=== PATIENT | female | born 1990 | race American Indian/Alaskan Native ===

== ENCOUNTER 2019-03-14 20:30 | Inpatient (IN) | payer OTHER ==
[2019-03-14] MEDS ORDERED: XYLOCAINE 2% INFILTRATI ONE (23:29)
[2019-03-14] MEDS ORDERED: D50W (25GM) Syringe IV PRN (23:29)
[2019-03-14] MEDS ORDERED: MINERAL OIL PO PRN (23:29)
[2019-03-14] MEDS ORDERED: BRETHINE IVP PRN (23:29)
[2019-03-14] MEDS ORDERED: BRETHINE SUB-Q PRN (23:29)
[2019-03-14] MEDS ORDERED: CERVIDIL VG ONE (23:29)
--- NOTE | 2019-03-14 23:37 | Ultrasound Report ---
PROCEDURE: Limited obstetrical ultrasound. TECHNIQUE: Real-time limited sonographic examination was performed for evaluation of each fetus with image documentation (1 or more fetuses). HISTORY: Term , evaluate positioning. COMPARISONS: None. FINDINGS: There is a single viable fetus in cephalic presentation. Cardiac activity is documented at 150 bpm. IMPRESSION: Viable fetus in cephalic presentation. This document is electronically signed by Lincoln Mercado MD., Mar 14 2019 11:34:58 PM ET
[2019-03-14] MEDS ORDERED: PITOCin/NS 20 UNIT/1000ML DRIP 20 UNITS/1,000 ML BAG IV SCH (23:45)
[2019-03-14] MEDS ORDERED: LACTATED RINGERS 1,000 ML ONE (23:49)
[2019-03-14] MEDS: LACTATED RINGERS 1,000 ML IV SCH (23:58)
[2019-03-15] MEDS: HumuLIN R SUB-Q SCH ×2 (00:45→06:28)
[2019-03-15 00:47] LABS: Hematocrit 34.4 % (30.3-42.9); Hemoglobin 11.9 gm/dl (10.1-14.3); Mean Corpuscular HGB Conc 35 % (30-34); Mean Corpuscular Volume 80 fl (79-97); Platelet Count 140 K/mm3 (140-440); Red Cell Distribution Width 13.2 % (13.2-15.2)
[2019-03-15] MEDS ORDERED: PITOCin/NS 30 UNIT/500ML 30 UNITS/500 ML BAG IV SCH ×2 (03:00→09:00)
--- NOTE | 2019-03-15 03:17 | History and Physical Report ---
History of Present Illness Date of examination: 03/15/19 Date of admission: 03/14/19 20:30 Chief complaint: IUP@39 wga, presents for IOL d/t IUGR and GDM on Metformin per [facility] recommendations History of present illness: EDC Confirmation: 03/17/2019 Gestational Age: 12 weeks Past History : 3 Term Births: 1 Premature Births: 0 Living Children: 1 Para: 1 Mult. Births: 0 Prev : 0 Aborta: 1 Elect. Ab: 0 Spont. Ab: 1 Ectopics: 0 # 1 Delivery date: 12/25/2011 Weeks Gestation: 38 Delivery type: Hours of labor: 24 Delivery location: [place] [facility] Sex: Male weight: 5-? Name: Mino # 2 Delivery date: 01/2017 Weeks Gestation: 8 Delivery type: SAB Comments: No D&C Past Medical History: Negative Past Medical History Past Surgical History: Negative Past Surgical History Family History Summary: Other family member - Has No Family History of Ovarvian Cancer - Entered On: 09/02/2018 Other family member - Has No Family History of Colon Cancer - Entered On: 09/02/2018 Other family member - Has No Family History of Breast Cancer - Entered On: 09/02/2018 Other family member - Has Family History of Hypertension - Entered On: 09/02/2018 Social History: Marital Status: Children: 1 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 of genital herpes: no Genetic History Congenital Heart Defect: Mom: yes Dad: no Comments: son at 6monthd surgery "hole in heart" Juan Disease: Mom: no Dad: no Thalassemia Mom: no Dad: no Neural Tube Defect Mom: no Dad: no Down's Syndrome Mom: no Dad: no Jaron-Sachs Mom: no Dad: no Sickle Cell Disease/Trait Mom: no Dad: no Hemophilia Mom: no Dad: no Muscular Dystrophy Mom: no Dad: no Cystic Fibrosis Mom: no Dad: no Pilo Chorea Mom: no Dad: no Mental Retardation Mom: no Dad: no Fragile X Mom: no Dad: no Other Genetic/Chromosomal Disorder Mom: no Dad: no Child w/other defect Mom: no Dad: no Enviromental Exposures Xray Exposure: no Medication, drug, or alcohol use since LMP: no Chemical/Other Exposure: no Exposure to Cat Liter: no Hx of Parvovirus (Fifth Disease): no Active Medications (reviewed today): VITAMIN PLUS LOW IRON 27-1 MG ORAL TABLET ( VIT-FE FUMARATE-FA) 1 po q day as directed Current Allergies (reviewed today): No known allergies Past History - Obstetrical History Expected Date of Delivery: 03/17/19 Actual Gestation: 39 Week(s) 5 Day(s) : 3 Medications and Allergies Allergies Allergy/AdvReac Type Severity Reaction Status Date / Time No Known Allergies Allergy Verified 03/14/19 23:50 Home Medications Medication Instructions Recorded Confirmed Last Taken Type Pnv 29-1 Tablet 1 tab PO DAILY 03/14/19 03/14/19 Unknown History metFORMIN [Glucophage] 500 mg PO QDAY 03/15/19 03/15/19 03/14/19 18:30 History Active Meds: Active Medications Dextrose (D50w (25gm) Syringe) 50 ml IV PRN PRN PRN Reason: Hypoglycemia Ephedrine Sulfate (Ephedrine Sulfate) 10 mg IV Q2M PRN PRN Reason: Hypotension Oxytocin/Sodium Chloride (Pitocin/Ns 20 Unit/1000ml Drip) 20 units in 1,000 mls @ 125 mls/hr IV DIRECT DOMINGA Lactated Ringer's (Lactated Ringers) 1,000 mls @ 125 mls/hr IV DIRECT DOMINGA Last Admin: 03/14/19 23:58 Dose: 125 mls/hr Documented by: Ampicillin Sodium (Ampicillin/Ns 1 Gm/50 Ml) 1 gm in 50 mls @ 100 mls/hr IV Q4HR DOMINGA; Protocol Ampicillin Sodium (Polycillin/Ns 2 Gm/100 Ml) 2 gm in 100 mls @ 100 mls/hr IV ONCE ONE; Protocol Stop: 03/15/19 13:59 Oxytocin/Sodium Chloride (Pitocin/Ns 30 Unit/500ml) 30 units in 500 mls @ 1 mls/hr IV TITR DOMINGA; Protocol Last Admin: 03/15/19 03:06 Dose: 1 milliunits/min, 1 mls/hr Documented by: Insulin Human Regular (Humulin R) 0 units SUB-Q Q6HR DOMINGA; Protocol Last Admin: 03/15/19 00:45 Dose: Not Given Documented by: Mineral Oil (Mineral Oil) 30 ml PO QHS PRN PRN Reason: Constipation Terbutaline Sulfate (Brethine) 0.25 mg SUB-Q ONCE PRN PRN Reason: Hyperstimulation/Hypertonicity Terbutaline Sulfate (Brethine) 0.25 mg IVP ONCE PRN PRN Reason: Hyperstimulation/Hypertonicity Review of Systems All systems: negative - Vital Signs Vital signs: Vital Signs Pulse BP 96 H 123/81 03/14/19 21:26 03/14/19 21:26 Temp Pulse Resp BP Pulse Ox 98.4 F 75 16 114/64 03/14/19 23:55 03/15/19 03:07 03/14/19 21:43 03/15/19 03:07 - Physical Exam Cardiovascular: Regular rate Lungs: Positive: Normal air movement - Obstetrical FHR: category 1 Cervical Dilatation: 1 Cervical Effacement Percentage: 50 station: -3 per RN@2150 Results Result Diagrams: 03/14/19 22:34 Abnormal lab results 03/14/19 03/14/19 Range/Units 21:54 22:34 MCHC 35 H (30-34) % POC Glucose 117 H (70-105) All other labs normal. Assessment and Plan - Patient Problems (1) 39 weeks gestation of Current Visit: Yes Status: Acute Plan to address problem: Strip reviewed, suspicious decelerations noted initially, however now cat 1, but d/t previous strip and GDM with IUGR will start low dose pitocin for IOL for now. Plan of care discussed with patient, questions encouraged and answered, she voiced understanding and agrees with plan of care (2) Gestational diabetes mellitus (GDM) controlled on oral hypoglycemic drug Current Visit: Yes Status: Acute Qualifiers: Trimester: third trimester Qualified Code(s): O24.415 - Gestational diabetes mellitus in , controlled by oral hypoglycemic drugs Plan to address problem: SSI for now (3) IUGR (intrauterine growth restriction) Current Visit: Yes Status: Acute Plan to address problem: EFW 5lb 6oz on 02/23/2019, 6%tile.
[2019-03-15] MEDS ORDERED: AMPICILLIN/NS 2 GM/100 ML 2 GM/100 ML BAG IV ONE ×3 (07:51→13:00)
--- NOTE | 2019-03-15 07:57 | Progress Note ---
Assessment and Plan Patient resting on side, denies needs for pain intervention at this time. SVE now 70/0. discussed IOL and AROM - pt desires AROM at this time. Clear fluid noted. Will continue increasing pitocin per protocol. Amp started for + GBS. Pt does not plan on epidural at this time; pain management options reviewed and pt aware all options are available to her as she sees fit. Anticipate . FHT currently CAT 1. - Patient Problems (1) 39 weeks gestation of Current Visit: Yes Status: Acute (2) Gestational diabetes mellitus (GDM) controlled on oral hypoglycemic drug Current Visit: Yes Status: Acute Qualifiers: Trimester: third trimester Qualified Code(s): O24.415 - Gestational diabetes mellitus in , controlled by oral hypoglycemic drugs (3) IUGR (intrauterine growth restriction) Current Visit: Yes Status: Acute (4) GBS (group B Streptococcus carrier), +RV culture, currently Current Visit: Yes Status: Acute Subjective - Subjective Date of service: 03/15/19 Principal diagnosis: IOL for IUGR and GDM Patient reports: movement normal, contractions Objective - Vital Signs Vital Signs: Vital Signs - 12hr 03/14/19 03/14/19 03/14/19 21:26 21:43 22:02 Temperature 98.6 F Pulse Rate 96 H 96 H Respiratory 16 Rate Blood Pressure 123/81 Blood Pressure 123/81 [Left] O2 Sat by Pulse Oximetry 03/14/19 03/14/19 03/15/19 23:55 23:56 03:07 Temperature 98.4 F Pulse Rate 87 75 Respiratory Rate Blood Pressure 104/60 114/64 Blood Pressure [Left] O2 Sat by Pulse Oximetry 03/15/19 03/15/19 03/15/19 03:11 03:16 03:21 Temperature Pulse Rate 79 75 75 Respiratory Rate Blood Pressure Blood Pressure [Left] O2 Sat by Pulse 100 100 100 Oximetry 03/15/19 03/15/19 03/15/19 03:26 03:31 03:36 Temperature Pulse Rate 75 79 74 Respiratory Rate Blood Pressure Blood Pressure [Left] O2 Sat by Pulse 100 100 100 Oximetry 03/15/19 03/15/19 03/15/19 03:41 03:46 03:51 Temperature Pulse Rate 69 71 70 Respiratory Rate Blood Pressure Blood Pressure [Left] O2 Sat by Pulse 100 100 100 Oximetry 03/15/19 03/15/19 03/15/19 03:56 04:01 04:06 Temperature Pulse Rate 71 75 74 Respiratory Rate Blood Pressure Blood Pressure [Left] O2 Sat by Pulse 100 100 100 Oximetry 03/15/19 03/15/19 03/15/19 04:11 04:16 04:21 Temperature Pulse Rate 78 72 73 Respiratory Rate Blood Pressure Blood Pressure [Left] O2 Sat by Pulse 100 100 100 Oximetry 03/15/19 03/15/19 03/15/19 04:26 04:31 04:36 Temperature Pulse Rate 71 79 74 Respiratory Rate Blood Pressure Blood Pressure [Left] O2 Sat by Pulse 100 100 100 Oximetry 03/15/19 03/15/19 03/15/19 04:41 04:46 04:51 Temperature Pulse Rate 76 72 70 Respiratory Rate Blood Pressure Blood Pressure [Left] O2 Sat by Pulse 100 100 100 Oximetry 03/15/19 03/15/19 03/15/19 04:56 05:01 05:06 Temperature Pulse Rate 72 80 82 Respiratory Rate Blood Pressure Blood Pressure [Left] O2 Sat by Pulse 100 100 100 Oximetry 03/15/19 03/15/19 03/15/19 05:11 05:16 05:21 Temperature Pulse Rate 71 70 74 Respiratory Rate Blood Pressure Blood Pressure [Left] O2 Sat by Pulse 100 100 100 Oximetry 03/15/19 03/15/19 03/15/19 05:26 05:31 05:36 Temperature Pulse Rate 70 74 73 Respiratory Rate Blood Pressure Blood Pressure [Left] O2 Sat by Pulse 100 100 100 Oximetry 03/15/19 03/15/19 03/15/19 05:41 05:46 05:51 Temperature Pulse Rate 74 73 70 Respiratory Rate Blood Pressure Blood Pressure [Left] O2 Sat by Pulse 100 100 100 Oximetry 03/15/19 03/15/19 03/15/19 05:56 06:01 06:06 Temperature Pulse Rate 69 77 73 Respiratory Rate Blood Pressure Blood Pressure [Left] O2 Sat by Pulse 100 100 100 Oximetry 03/15/19 03/15/19 03/15/19 06:11 06:23 06:24 Temperature Pulse Rate 72 67 73 Respiratory Rate Blood Pressure 106/65 Blood Pressure [Left] O2 Sat by Pulse 100 97 Oximetry 03/15/19 03/15/19 03/15/19 06:25 06:28 06:33 Temperature 98.8 F Pulse Rate 70 72 Respiratory Rate Blood Pressure Blood Pressure [Left] O2 Sat by Pulse 96 97 Oximetry 03/15/19 03/15/19 03/15/19 06:38 06:43 06:48 Temperature Pulse Rate 67 65 71 Respiratory Rate Blood Pressure Blood Pressure [Left] O2 Sat by Pulse 97 98 97 Oximetry 03/15/19 03/15/19 03/15/19 06:53 06:58 07:00 Temperature 98.2 F Pulse Rate 70 61 Respiratory Rate Blood Pressure Blood Pressure [Left] O2 Sat by Pulse 98 99 Oximetry 03/15/19 03/15/19 03/15/19 07:03 07:06 07:08 Temperature Pulse Rate 65 62 63 Respiratory Rate Blood Pressure 107/65 Blood Pressure [Left] O2 Sat by Pulse 99 99 Oximetry 03/15/19 03/15/19 03/15/19 07:13 07:18 07:23 Temperature Pulse Rate 61 67 66 Respiratory Rate Blood Pressure Blood Pressure [Left] O2 Sat by Pulse 98 98 98 Oximetry 03/15/19 03/15/19 03/15/19 07:28 07:33 07:38 Temperature Pulse Rate 74 65 68 Respiratory Rate Blood Pressure Blood Pressure [Left] O2 Sat by Pulse 99 98 98 Oximetry 03/15/19 03/15/19 07:43 07:48 Temperature Pulse Rate 69 71 Respiratory Rate Blood Pressure Blood Pressure [Left] O2 Sat by Pulse 99 99 Oximetry - Exam Breasts: normal Cardiovascular: Regular rate Lungs: Clear to auscultation, Normal air movement Abdomen: Present: normal appearance, soft Vulva: both: normal Uterus: Present: normal FHR: auscultation normal, category 1 Uterine Contraction Monitor Mode: External Cervical Dilatation: 3 Cervical Effacement Percentage: 70 station: 0 Uterine Contraction Frequency (min): 2-4 Uterine Contraction Duration: 60 Uterine Contraction Pattern: Regular Uterine Tone Measurement Phase: Contraction Uterine Contraction Intensity: Moderate Extremities: normal Deep Tendon Reflex Grade: Normal +2 - Labs Labs: Abnormal Labs 03/14/19 03/14/19 21:54 22:34 MCHC 35 H POC Glucose 117 H Laboratory Results - last 24 hr 03/14/19 03/14/19 03/14/19 21:54 22:34 22:34 WBC 5.7 RBC 4.30 Hgb 11.9 Hct 34.4 MCV 80 MCH 28 MCHC 35 H RDW 13.2 Plt Count 140 POC Glucose 117 H Hemoglobin A1c 5.2 Blood Type Antibody Screen 03/14/19 03/15/19 03/15/19 22:34 00:26 06:19 WBC RBC Hgb Hct MCV MCH MCHC RDW Plt Count POC Glucose 73 83 Hemoglobin A1c Blood Type O POSITIVE Antibody Screen Negative
[2019-03-15] MEDS: LACTATED RINGERS 1,000 ML IV SCH ×2 (09:03→15:12)
[2019-03-15] MEDS ORDERED: ZOFRAN IV PRN (10:30)
[2019-03-15] MEDS ORDERED: AMPICILLIN/NS 1 GM/50 ML 1 GM/50 ML BAG IV SCH ×2 (12:00→17:00)
--- NOTE | 2019-03-15 13:02 | Progress Note ---
Assessment and Plan Patient doing well, tolerating ctx well. SVE with some change - tight band noted in cervix. IUPC placed without difficulty. FHT with early decels. anticipate . - Patient Problems (1) 39 weeks gestation of Current Visit: Yes Status: Acute (2) Gestational diabetes mellitus (GDM) controlled on oral hypoglycemic drug Current Visit: Yes Status: Acute Qualifiers: Trimester: third trimester Qualified Code(s): O24.415 - Gestational diabetes mellitus in , controlled by oral hypoglycemic drugs (3) IUGR (intrauterine growth restriction) Current Visit: Yes Status: Acute (4) GBS (group B Streptococcus carrier), +RV culture, currently Current Visit: Yes Status: Acute Plan to address problem: continue ampicillin q4h until delivery Subjective - Subjective Date of service: 03/15/19 Principal diagnosis: IOL for IUGR and GDM Patient reports: movement normal, contractions Objective - Vital Signs Vital Signs: Vital Signs - 12hr 03/15/19 03/15/19 03/15/19 03:07 03:11 03:16 Temperature Pulse Rate 75 79 75 Blood Pressure 114/64 O2 Sat by Pulse 100 100 Oximetry 03/15/19 03/15/19 03/15/19 03:21 03:26 03:31 Temperature Pulse Rate 75 75 79 Blood Pressure O2 Sat by Pulse 100 100 100 Oximetry 03/15/19 03/15/19 03/15/19 03:36 03:41 03:46 Temperature Pulse Rate 74 69 71 Blood Pressure O2 Sat by Pulse 100 100 100 Oximetry 03/15/19 03/15/19 03/15/19 03:51 03:56 04:01 Temperature Pulse Rate 70 71 75 Blood Pressure O2 Sat by Pulse 100 100 100 Oximetry 03/15/19 03/15/19 03/15/19 04:06 04:11 04:16 Temperature Pulse Rate 74 78 72 Blood Pressure O2 Sat by Pulse 100 100 100 Oximetry 03/15/19 03/15/19 03/15/19 04:21 04:26 04:31 Temperature Pulse Rate 73 71 79 Blood Pressure O2 Sat by Pulse 100 100 100 Oximetry 03/15/19 03/15/19 03/15/19 04:36 04:41 04:46 Temperature Pulse Rate 74 76 72 Blood Pressure O2 Sat by Pulse 100 100 100 Oximetry 03/15/19 03/15/19 03/15/19 04:51 04:56 05:01 Temperature Pulse Rate 70 72 80 Blood Pressure O2 Sat by Pulse 100 100 100 Oximetry 03/15/19 03/15/19 03/15/19 05:06 05:11 05:16 Temperature Pulse Rate 82 71 70 Blood Pressure O2 Sat by Pulse 100 100 100 Oximetry 03/15/19 03/15/19 03/15/19 05:21 05:26 05:31 Temperature Pulse Rate 74 70 74 Blood Pressure O2 Sat by Pulse 100 100 100 Oximetry 03/15/19 03/15/19 03/15/19 05:36 05:41 05:46 Temperature Pulse Rate 73 74 73 Blood Pressure O2 Sat by Pulse 100 100 100 Oximetry 03/15/19 03/15/19 03/15/19 05:51 05:56 06:01 Temperature Pulse Rate 70 69 77 Blood Pressure O2 Sat by Pulse 100 100 100 Oximetry 03/15/19 03/15/19 03/15/19 06:06 06:11 06:23 Temperature Pulse Rate 73 72 67 Blood Pressure O2 Sat by Pulse 100 100 97 Oximetry 03/15/19 03/15/19 03/15/19 06:24 06:25 06:28 Temperature 98.8 F Pulse Rate 73 70 Blood Pressure 106/65 O2 Sat by Pulse 96 Oximetry 03/15/19 03/15/19 03/15/19 06:33 06:38 06:43 Temperature Pulse Rate 72 67 65 Blood Pressure O2 Sat by Pulse 97 97 98 Oximetry 03/15/19 03/15/19 03/15/19 06:48 06:53 06:58 Temperature Pulse Rate 71 70 61 Blood Pressure O2 Sat by Pulse 97 98 99 Oximetry 03/15/19 03/15/19 03/15/19 07:00 07:03 07:06 Temperature 98.2 F Pulse Rate 65 62 Blood Pressure 107/65 O2 Sat by Pulse 99 Oximetry 03/15/19 03/15/19 03/15/19 07:08 07:13 07:18 Temperature Pulse Rate 63 61 67 Blood Pressure O2 Sat by Pulse 99 98 98 Oximetry 03/15/19 03/15/19 03/15/19 07:23 07:28 07:33 Temperature Pulse Rate 66 74 65 Blood Pressure O2 Sat by Pulse 98 99 98 Oximetry 03/15/19 03/15/19 03/15/19 07:38 07:43 07:48 Temperature Pulse Rate 68 69 71 Blood Pressure O2 Sat by Pulse 98 99 99 Oximetry 03/15/19 03/15/19 03/15/19 07:53 07:58 08:03 Temperature Pulse Rate 68 62 71 Blood Pressure O2 Sat by Pulse 99 99 99 Oximetry 03/15/19 03/15/19 03/15/19 08:06 08:08 08:13 Temperature Pulse Rate 65 68 63 Blood Pressure 109/71 O2 Sat by Pulse 99 99 Oximetry 03/15/19 03/15/19 03/15/19 08:18 08:23 08:28 Temperature Pulse Rate 63 64 66 Blood Pressure O2 Sat by Pulse 99 99 99 Oximetry 03/15/19 03/15/19 03/15/19 08:33 08:38 08:43 Temperature Pulse Rate 65 63 62 Blood Pressure O2 Sat by Pulse 98 98 98 Oximetry 03/15/19 03/15/19 03/15/19 08:48 08:53 08:58 Temperature Pulse Rate 71 68 65 Blood Pressure O2 Sat by Pulse 98 99 98 Oximetry 03/15/19 03/15/19 03/15/19 09:00 09:03 09:06 Temperature 98.8 F Pulse Rate 68 67 Blood Pressure 112/72 O2 Sat by Pulse 99 Oximetry 03/15/19 03/15/19 03/15/19 09:08 09:13 09:18 Temperature Pulse Rate 76 72 64 Blood Pressure O2 Sat by Pulse 97 98 99 Oximetry 03/15/19 03/15/19 03/15/19 09:23 09:28 09:33 Temperature Pulse Rate 65 66 71 Blood Pressure O2 Sat by Pulse 99 99 98 Oximetry 03/15/19 03/15/19 03/15/19 09:38 09:43 09:48 Temperature Pulse Rate 70 75 76 Blood Pressure O2 Sat by Pulse 98 98 99 Oximetry 03/15/19 03/15/19 03/15/19 09:53 09:58 10:03 Temperature Pulse Rate 68 106 H 80 Blood Pressure O2 Sat by Pulse 99 100 98 Oximetry 03/15/19 03/15/19 03/15/19 10:07 10:08 10:13 Temperature Pulse Rate 80 75 68 Blood Pressure 112/74 O2 Sat by Pulse 99 99 Oximetry 03/15/19 03/15/19 03/15/19 10:18 10:23 10:28 Temperature Pulse Rate 88 67 67 Blood Pressure O2 Sat by Pulse 99 99 98 Oximetry 03/15/19 03/15/19 03/15/19 10:33 10:38 10:43 Temperature Pulse Rate 67 72 81 Blood Pressure O2 Sat by Pulse 99 99 99 Oximetry 03/15/19 03/15/19 03/15/19 10:48 10:53 10:58 Temperature Pulse Rate 68 69 66 Blood Pressure O2 Sat by Pulse 99 99 100 Oximetry 03/15/19 03/15/19 03/15/19 11:00 11:03 11:06 Temperature 98.0 F Pulse Rate 67 64 Blood Pressure 126/82 O2 Sat by Pulse 99 Oximetry 03/15/19 03/15/19 03/15/19 11:08 11:13 11:18 Temperature Pulse Rate 68 76 63 Blood Pressure O2 Sat by Pulse 99 99 99 Oximetry 03/15/19 03/15/19 03/15/19 11:23 11:28 11:33 Temperature Pulse Rate 120 H 70 64 Blood Pressure O2 Sat by Pulse 97 97 97 Oximetry 03/15/19 03/15/19 03/15/19 11:38 11:43 11:48 Temperature Pulse Rate 65 69 66 Blood Pressure O2 Sat by Pulse 97 98 96 Oximetry 03/15/19 03/15/19 03/15/19 11:53 11:58 12:03 Temperature Pulse Rate 75 74 78 Blood Pressure O2 Sat by Pulse 97 97 97 Oximetry 03/15/19 03/15/19 03/15/19 12:06 12:08 12:13 Temperature Pulse Rate 78 76 69 Blood Pressure 134/74 O2 Sat by Pulse 97 97 Oximetry 03/15/19 03/15/19 03/15/19 12:18 12:23 12:25 Temperature Pulse Rate 63 72 64 Blood Pressure O2 Sat by Pulse 99 96 94 Oximetry 03/15/19 03/15/19 03/15/19 12:28 12:33 12:38 Temperature Pulse Rate 64 70 69 Blood Pressure O2 Sat by Pulse 97 95 98 Oximetry 03/15/19 03/15/19 03/15/19 12:43 12:48 12:53 Temperature Pulse Rate 69 79 71 Blood Pressure O2 Sat by Pulse 98 100 97 Oximetry 03/15/19 12:58 Temperature Pulse Rate 72 Blood Pressure O2 Sat by Pulse 96 Oximetry - Exam Breasts: normal Cardiovascular: Regular rate Lungs: Clear to auscultation Abdomen: Present: normal appearance, soft Vulva: both: normal FHR: category 1 Uterine Contraction Monitor Mode: External Cervical Dilatation: 4.5 (IUPC placed) Cervical Effacement Percentage: 80 station: 0 Uterine Contraction Frequency (min): 2-3 Uterine Contraction Duration: 60 Uterine Contraction Pattern: Regular Uterine Tone Measurement Phase: Contraction Uterine Contraction Intensity: Moderate Extremities: normal Deep Tendon Reflex Grade: Normal +2 - Labs Labs: Abnormal Labs 03/14/19 03/14/19 21:54 22:34 MCHC 35 H POC Glucose 117 H Laboratory Results - last 24 hr 03/14/19 03/14/19 03/14/19 21:54 22:34 22:34 WBC 5.7 RBC 4.30 Hgb 11.9 Hct 34.4 MCV 80 MCH 28 MCHC 35 H RDW 13.2 Plt Count 140 POC Glucose 117 H Hemoglobin A1c 5.2 RPR Blood Type Antibody Screen 03/14/19 03/14/19 03/15/19 22:34 22:34 00:26 WBC RBC Hgb Hct MCV MCH MCHC RDW Plt Count POC Glucose 73 Hemoglobin A1c RPR Nonreactive Blood Type O POSITIVE Antibody Screen Negative 03/15/19 03/15/19 06:19 12:07 WBC RBC Hgb Hct MCV MCH MCHC RDW Plt Count POC Glucose 83 77 Hemoglobin A1c RPR Blood Type Antibody Screen
[2019-03-15] MEDS ORDERED: SUBLIMAZE IV PRN (13:31)
--- NOTE | 2019-03-15 16:45 | Progress Note ---
Assessment and Plan pt remains quite but appears in more pain. SVE now 8/90/+1, ctx palpated mod- strong. normal blood show. Position changed to high fowlers. Anticipate - Patient Problems (1) 39 weeks gestation of Current Visit: Yes Status: Acute (2) Gestational diabetes mellitus (GDM) controlled on oral hypoglycemic drug Current Visit: Yes Status: Acute Qualifiers: Trimester: third trimester Qualified Code(s): O24.415 - Gestational diabetes mellitus in , controlled by oral hypoglycemic drugs (3) IUGR (intrauterine growth restriction) Current Visit: Yes Status: Acute (4) GBS (group B Streptococcus carrier), +RV culture, currently Current Visit: Yes Status: Acute Subjective - Subjective Date of service: 03/15/19 Principal diagnosis: IOL for IUGR and GDM Patient reports: movement normal, contractions Objective - Vital Signs Vital Signs: Vital Signs - 12hr 03/15/19 03/15/19 03/15/19 04:46 04:51 04:56 Temperature Pulse Rate 72 70 72 Respiratory Rate Blood Pressure O2 Sat by Pulse 100 100 100 Oximetry 03/15/19 03/15/19 03/15/19 05:01 05:06 05:11 Temperature Pulse Rate 80 82 71 Respiratory Rate Blood Pressure O2 Sat by Pulse 100 100 100 Oximetry 03/15/19 03/15/19 03/15/19 05:16 05:21 05:26 Temperature Pulse Rate 70 74 70 Respiratory Rate Blood Pressure O2 Sat by Pulse 100 100 100 Oximetry 03/15/19 03/15/19 03/15/19 05:31 05:36 05:41 Temperature Pulse Rate 74 73 74 Respiratory Rate Blood Pressure O2 Sat by Pulse 100 100 100 Oximetry 03/15/19 03/15/19 03/15/19 05:46 05:51 05:56 Temperature Pulse Rate 73 70 69 Respiratory Rate Blood Pressure O2 Sat by Pulse 100 100 100 Oximetry 03/15/19 03/15/19 03/15/19 06:01 06:06 06:11 Temperature Pulse Rate 77 73 72 Respiratory Rate Blood Pressure O2 Sat by Pulse 100 100 100 Oximetry 03/15/19 03/15/19 03/15/19 06:23 06:24 06:25 Temperature 98.8 F Pulse Rate 67 73 Respiratory Rate Blood Pressure 106/65 O2 Sat by Pulse 97 Oximetry 03/15/19 03/15/1903/15/19 06:28 06:33 06:38 Temperature Pulse Rate 70 72 67 Respiratory Rate Blood Pressure O2 Sat by Pulse 96 97 97 Oximetry 03/15/19 03/15/19 03/15/19 06:43 06:48 06:53 Temperature Pulse Rate 65 71 70 Respiratory Rate Blood Pressure O2 Sat by Pulse 98 97 98 Oximetry 03/15/19 03/15/19 03/15/19 06:58 07:00 07:03 Temperature 98.2 F Pulse Rate 61 65 Respiratory Rate Blood Pressure O2 Sat by Pulse 99 99 Oximetry 03/15/19 03/15/19 03/15/19 07:06 07:08 07:13 Temperature Pulse Rate 62 63 61 Respiratory Rate Blood Pressure 107/65 O2 Sat by Pulse 99 98 Oximetry 03/15/19 03/15/19 03/15/19 07:18 07:23 07:28 Temperature Pulse Rate 67 66 74 Respiratory Rate Blood Pressure O2 Sat by Pulse 98 98 99 Oximetry 03/15/19 03/15/19 03/15/19 07:33 07:38 07:43 Temperature Pulse Rate 65 68 69 Respiratory Rate Blood Pressure O2 Sat by Pulse 98 98 99 Oximetry 03/15/19 03/15/19 03/15/19 07:48 07:53 07:58 Temperature Pulse Rate 71 68 62 Respiratory Rate Blood Pressure O2 Sat by Pulse 99 99 99 Oximetry 03/15/19 03/15/19 03/15/19 08:03 08:06 08:08 Temperature Pulse Rate 71 65 68 Respiratory Rate Blood Pressure 109/71 O2 Sat by Pulse 99 99 Oximetry 03/15/19 03/15/19 03/15/19 08:13 08:18 08:23 Temperature Pulse Rate 63 63 64 Respiratory Rate Blood Pressure O2 Sat by Pulse 99 99 99 Oximetry 03/15/19 03/15/19 03/15/19 08:28 08:33 08:38 Temperature Pulse Rate 66 65 63 Respiratory Rate Blood Pressure O2 Sat by Pulse 99 98 98 Oximetry 03/15/19 03/15/19 03/15/19 08:43 08:48 08:53 Temperature Pulse Rate 62 71 68 Respiratory Rate Blood Pressure O2 Sat by Pulse 98 98 99 Oximetry 03/15/19 03/15/19 03/15/19 08:58 09:00 09:03 Temperature 98.8 F Pulse Rate 65 68 Respiratory Rate Blood Pressure O2 Sat by Pulse 98 99 Oximetry 03/15/19 03/15/19 03/15/19 09:06 09:08 09:13 Temperature Pulse Rate 67 76 72 Respiratory Rate Blood Pressure 112/72 O2 Sat by Pulse 97 98 Oximetry 03/15/19 03/15/19 03/15/19 09:18 09:23 09:28 Temperature Pulse Rate 64 65 66 Respiratory Rate Blood Pressure O2 Sat by Pulse 99 99 99 Oximetry 03/15/19 03/15/19 03/15/19 09:33 09:38 09:43 Temperature Pulse Rate 71 70 75 Respiratory Rate Blood Pressure O2 Sat by Pulse 98 98 98 Oximetry 03/15/19 03/15/19 03/15/19 09:48 09:53 09:58 Temperature Pulse Rate 76 68 106 H Respiratory Rate Blood Pressure O2 Sat by Pulse 99 99 100 Oximetry 03/15/19 03/15/19 03/15/19 10:03 10:07 10:08 Temperature Pulse Rate 80 80 75 Respiratory Rate Blood Pressure 112/74 O2 Sat by Pulse 98 99 Oximetry 03/15/19 03/15/19 03/15/19 10:13 10:18 10:23 Temperature Pulse Rate 68 88 67 Respiratory Rate Blood Pressure O2 Sat by Pulse 99 99 99 Oximetry 03/15/19 03/15/19 03/15/19 10:28 10:33 10:38 Temperature Pulse Rate 67 67 72 Respiratory Rate Blood Pressure O2 Sat by Pulse 98 99 99 Oximetry 03/15/19 03/15/19 03/15/19 10:43 10:48 10:53 Temperature Pulse Rate 81 68 69 Respiratory Rate Blood Pressure O2 Sat by Pulse 99 99 99 Oximetry 03/15/19 03/15/19 03/15/19 10:58 11:00 11:03 Temperature 97.2 F L Pulse Rate 66 67 Respiratory Rate Blood Pressure O2 Sat by Pulse 100 99 Oximetry 03/15/19 03/15/19 03/15/19 11:06 11:08 11:13 Temperature Pulse Rate 64 68 76 Respiratory Rate Blood Pressure 126/82 O2 Sat by Pulse 99 99 Oximetry 03/15/19 03/15/19 03/15/19 11:18 11:23 11:28 Temperature Pulse Rate 63 120 H 70 Respiratory Rate Blood Pressure O2 Sat by Pulse 99 97 97 Oximetry 03/15/19 03/15/19 03/15/19 11:33 11:38 11:43 Temperature Pulse Rate 64 65 69 Respiratory Rate Blood Pressure O2 Sat by Pulse 97 97 98 Oximetry 03/15/19 03/15/19 03/15/19 11:48 11:53 11:58 Temperature Pulse Rate 66 75 74 Respiratory Rate Blood Pressure O2 Sat by Pulse 96 97 97 Oximetry 03/15/19 03/15/19 03/15/19 12:03 12:06 12:08 Temperature Pulse Rate 78 78 76 Respiratory Rate Blood Pressure 134/74 O2 Sat by Pulse 97 97 Oximetry 03/15/19 03/15/19 03/15/19 12:13 12:18 12:23 Temperature Pulse Rate 69 63 72 Respiratory Rate Blood Pressure O2 Sat by Pulse 97 99 96 Oximetry 03/15/19 03/15/19 03/15/19 12:25 12:28 12:33 Temperature Pulse Rate 64 64 70 Respiratory Rate Blood Pressure O2 Sat by Pulse 94 97 95 Oximetry 03/15/19 03/15/19 03/15/19 12:38 12:43 12:48 Temperature Pulse Rate 69 69 79 Respiratory Rate Blood Pressure O2 Sat by Pulse 98 98 100 Oximetry 03/15/19 03/15/19 03/15/19 12:53 12:58 13:00 Temperature 98.6 F Pulse Rate 71 72 Respiratory Rate Blood Pressure O2 Sat by Pulse 97 96 Oximetry 03/15/19 03/15/19 03/15/19 13:03 13:06 13:08 Temperature Pulse Rate 68 78 85 Respiratory Rate Blood Pressure 140/86 O2 Sat by Pulse 99 99 Oximetry 03/15/19 03/15/19 03/15/19 13:13 13:18 13:23 Temperature Pulse Rate 94 H 88 89 Respiratory Rate Blood Pressure O2 Sat by Pulse 99 100 99 Oximetry 03/15/19 03/15/19 03/15/19 13:28 13:33 13:38 Temperature Pulse Rate 89 89 87 Respiratory Rate Blood Pressure O2 Sat by Pulse 100 98 98 Oximetry 03/15/19 03/15/19 03/15/19 13:40 13:43 13:45 Temperature Pulse Rate 86 95 H Respiratory 18 Rate Blood Pressure O2 Sat by Pulse 97 94 Oximetry 03/15/19 03/15/19 03/15/19 13:48 13:51 13:53 Temperature Pulse Rate 77 90 84 Respiratory Rate Blood Pressure O2 Sat by Pulse 96 94 96 Oximetry 03/15/19 03/15/19 03/15/19 13:58 14:03 14:06 Temperature Pulse Rate 77 97 H 82 Respiratory Rate Blood Pressure 136/81 O2 Sat by Pulse 97 97 Oximetry 03/15/19 03/15/19 03/15/19 14:08 14:10 14:13 Temperature Pulse Rate 77 94 H 79 Respiratory Rate Blood Pressure O2 Sat by Pulse 94 93 98 Oximetry 03/15/19 03/15/19 03/15/19 14:18 14:23 14:28 Temperature Pulse Rate 68 86 71 Respiratory Rate Blood Pressure O2 Sat by Pulse 100 100 100 Oximetry 03/15/19 03/15/19 03/15/19 14:33 14:38 14:43 Temperature Pulse Rate 69 82 78 Respiratory Rate Blood Pressure O2 Sat by Pulse 100 100 100 Oximetry 03/15/19 03/15/19 03/15/19 14:48 14:53 14:58 Temperature Pulse Rate 69 70 71 Respiratory Rate Blood Pressure O2 Sat by Pulse 100 100 99 Oximetry 03/15/19 03/15/19 03/15/19 15:03 15:06 15:08 Temperature Pulse Rate 72 69 77 Respiratory Rate Blood Pressure 119/69 O2 Sat by Pulse 100 100 Oximetry 03/15/19 03/15/19 03/15/19 15:13 15:18 15:23 Temperature Pulse Rate 66 70 72 Respiratory Rate Blood Pressure O2 Sat by Pulse 100 100 100 Oximetry 03/15/19 03/15/19 03/15/19 15:28 15:33 15:38 Temperature Pulse Rate 114 H 101 H 88 Respiratory Rate Blood Pressure O2 Sat by Pulse 99 99 99 Oximetry 03/15/19 03/15/19 03/15/19 15:43 15:48 15:53 Temperature Pulse Rate 87 63 85 Respiratory Rate Blood Pressure O2 Sat by Pulse 100 98 97 Oximetry 03/15/19 03/15/19 03/15/19 15:58 16:03 16:07 Temperature Pulse Rate 98 H 104 H 68 Respiratory Rate Blood Pressure 146/74 O2 Sat by Pulse 98 99 Oximetry 03/15/19 03/15/19 03/15/19 16:08 16:13 16:18 Temperature Pulse Rate 69 73 85 Respiratory Rate Blood Pressure O2 Sat by Pulse 98 99 100 Oximetry 03/15/19 03/15/19 03/15/19 16:23 16:28 16:33 Temperature Pulse Rate 66 89 78 Respiratory Rate Blood Pressure O2 Sat by Pulse 99 98 97 Oximetry 03/15/19 16:38 Temperature Pulse Rate 76 Respiratory Rate Blood Pressure O2 Sat by Pulse 99 Oximetry - Exam Breasts: normal Cardiovascular: Regular rate Lungs: Clear to auscultation, Normal air movement Abdomen: Present: normal appearance, soft Vulva: both: normal Uterus: Present: normal FHR: auscultation normal, category 1 Uterine Contraction Monitor Mode: Internal Cervical Dilatation: 8 Cervical Effacement Percentage: 90 station: +1 Uterine Contraction Frequency (min): 2-3 Uterine Contraction Duration: 70 Uterine Contraction Pattern: Regular Uterine Tone Measurement Phase: Contraction Uterine Contraction Intensity: Strong/Firm Extremities: normal Deep Tendon Reflex Grade: Normal +2 - Labs Labs: Abnormal Labs 03/14/19 03/14/19 21:54 22:34 MCHC 35 H POC Glucose 117 H Laboratory Results - last 24 hr 03/14/19 03/14/19 03/14/19 21:54 22:34 22:34 WBC 5.7 RBC 4.30 Hgb 11.9 Hct 34.4 MCV 80 MCH 28 MCHC 35 H RDW 13.2 Plt Count 140 POC Glucose 117 H Hemoglobin A1c 5.2 RPR Blood Type Antibody Screen 03/14/19 03/14/19 03/15/19 22:34 22:34 00:26 WBC RBC Hgb Hct MCV MCH MCHC RDW Plt Count POC Glucose 73 Hemoglobin A1c RPR Nonreactive Blood Type O POSITIVE Antibody Screen Negative 03/15/19 03/15/19 06:19 12:07 WBC RBC Hgb Hct MCV MCH MCHC RDW Plt Count POC Glucose 83 77 Hemoglobin A1c RPR Blood Type Antibody Screen
--- NOTE | 2019-03-15 17:23 | Procedure Note ---
OB Delivery Note - Delivery Date of Delivery: 03/15/19 ( female "Sheri") [employer]: NICOLAS PARADA Estimated blood loss: 200cc - Vaginal Delivery presentation: vertex Delivery position: OA (ADILSON with left hand delivering before shoulder) Intrapartum events: none Delivery induction: oxytocin Delivery augmentation: rupture of membranes Delivery monitor: external FHT, internal uterine Route of delivery: Delivery placenta: spontaneous (sent to pathology d/t IUGR) Delivery cord: 3 umbilical vessels Episiotomy: none Delivery laceration: none Anesthesia: intravenous Delivery comments: female born ADILSON over intact perineum. Left hand delivered with delivery of head. vigorous and crying, placed skin to skin on mother's abdomen. 3 vessel cord clamped and cut after cessation of pulsation. cord blood collected. Placenta del intact and complete, marginal cord insertion noted. Placenta sent to pathology. Pit to IVF. no laceration to repair. Lochia scant, fundus firm. EBL 200, apgars 8/9, wt 6#0. mother and infant remain LDR stable. - Infant A at 1 minute: 8 at 5 minutes: 9 Gender: Female (6#0)
[2019-03-15] MEDS ORDERED: BENADRYL PO PRN (21:08)
[2019-03-15] MEDS ORDERED: PHENERGAN PO PRN (21:08)
[2019-03-15] MEDS ORDERED: LANSINOH TP PRN (21:08)
[2019-03-15] MEDS ORDERED: TYLENOL PO PRN (21:08)
[2019-03-15] MEDS ORDERED: DULCOLAX PR PRN (21:08)
[2019-03-15] MEDS ORDERED: MILK OF MAGNESIA PO PRN (21:08)
[2019-03-15] MEDS ORDERED: DERMOPLAST TP PRN (21:08)
[2019-03-15] MEDS ORDERED: SODIUM CHLORIDE FLUSH SYRINGE 10 ML IV PRN (21:08)
[2019-03-15] MEDS ORDERED: PITOCin/NS 20 UNIT/1000ML DRIP 20 UNITS/1,000 ML BAG IV SCH (21:08)
[2019-03-15] MEDS ORDERED: TUCKS PAD TP PRN (21:08)
[2019-03-15] MEDS: IBUPROFEN PO SCH (22:01)
[2019-03-16 04:31] LABS: Hematocrit 33.1 % (30.3-42.9); Hemoglobin 11.1 gm/dl (10.1-14.3)
[2019-03-16] MEDS: IBUPROFEN PO SCH ×3 (05:33→18:07)
--- NOTE | 2019-03-16 06:53 | Discharge Summary ---
Providers - Providers Date of Admission: 03/14/19 20:30 Date of discharge: 03/16/19 (pt asking to d/c today; she is aware she may stay if the baby is not d/c) Attending physician: ALPESH MCCRARY Primary care physician: ALPESH MCCRARY Hospitalization Reason for admission: induction of labor (GDM), IUP at term Delivery: Episiotomy: none Laceration: none Incision: normal Other procedures: none complications: none Discharge diagnosis: IUP at term delivered [place] baby: female Hospital course: uncomplicated vaginal delivery Pt awake caring for NB VSS FF below umb Lochia small Perineum intact H&H Asymptomatic anemia Doing well s/p vag delivery P: d/c today with instructions RTO 4 weeks Condition at discharge: Good Disposition: DC-01 TO HOME OR SELFCARE - Discharge Diagnoses (1) (normal spontaneous vaginal delivery) Status: Acute Comment: RTO 4 weeks PP care Plan - Provider Discharge Summary Activity: routine, no sex for 6 weeks, no heavy lifting 4 weeks, no strenuous exercise Diet: routine Instructions: routine Additional instructions: [] Smoking cessation referral if applicable(refer to patient education folder for contact #) [] Refer to [facility]'s [facility] Booklet Call your doctor immediately for: * Fever > 100.5 * Heavy vaginal bleeding ( >1 pad per hour) * Severe persistent headache * Shortness of breath * Reddened, hot, painful area to leg or breast * Drainage or odor from incision. * Keep incision clean and dry at all times and follow doctor's instructions regarding bathing/showering - Follow up plan Follow up: ALPESH MCCRARY MD [Primary Care Provider] - 04/17/19 (Congratulations! Please call [phone] to schedule your care in 4 weeks. Motrin/ibuprofen for cramping/pain. Call with concerns.)
[2019-03-16] MEDS ORDERED: PRENATAL VITAMIN PO SCH (10:00)
[2019-03-16 18:16] VITALS: BP 134/80
[2019-03-17] MEDS ORDERED: BOOSTRIX IM ONE (06:00)
== END 2019-03-16 21:15 | disposition home or self-care (01) | DRG 775 ==
LOC: LD 20:30 → OB 03-15 21:03
PROVIDERS: ADMIT Obstetrics & Gynecology; ATTEND Obstetrics & Gynecology
PROC: 10907ZC Drainage of Amniotic Fluid, Therapeutic from Products of Conception, Via Natural or Artificial Opening (ICD-10-PCS; 2019-03-14)
PROC: 10E0XZZ Delivery of Products of Conception, External Approach (ICD-10-PCS; principal; 2019-03-15)
PROC: 10H07YZ Insertion of Other Device into Products of Conception, Via Natural or Artificial Opening (ICD-10-PCS; 2019-03-15)
PROC: 3E033VJ Introduction of Other Hormone into Peripheral Vein, Percutaneous Approach (ICD-10-PCS; 2019-03-15)
DX: O36.5930 Maternal care for other known or suspected poor fetal growth, third trimester, not applicable or unspecified (principal); O99.824 Streptococcus B carrier state complicating childbirth; O24.425 Gestational diabetes mellitus in childbirth, controlled by oral hypoglycemic drugs; O76 Abnormality in fetal heart rate and rhythm complicating labor and delivery; O43.123 Velamentous insertion of umbilical cord, third trimester; O32.2XX0 Maternal care for transverse and oblique lie, not applicable or unspecified; O90.81 Anemia of the puerperium; D64.9 Anemia, unspecified; Z3A.39 39 weeks gestation of pregnancy; Z37.0 Single live birth; Z23 Encounter for immunization
CPT/HCPCS: 36415; 76815; 82962; 83036; 85014; 85018; 85027; 86592; 86850; 86900; 86901; 88307; G0378; J0290; J2405; J2590; J3010; J7120